=== PATIENT | female | born 1985 | race Caucasian/White ===

== ENCOUNTER → 2016-12-22 | Outpatient (CLI) | payer OTHER ==
[2016-12-22 11:32] LABS: BASO % 0.3 % (0.0-1.0); EOS % 0.6 % (0.0-3.0); LARGE UNSTAINED CELL # 0.1 K/mm3 (0.0-0.4); LARGE UNSTAINED CELL % 2.3 % (0.0-4.0); LYMPH # 1.6 K/mm3 (1.5-4.5); MEAN CORPUSCULAR HEMOGLOBIN 31.5 pg (27.0-33.0); MEAN CORPUSCULAR HGB CONC 34.2 g/dl (32.0-36.5); MEAN CORPUSCULAR VOLUME 92.1 fl (80.0-96.0); MONO # 0.3 K/mm3 (0.0-0.8); MONO % 5.7 % (0.0-5.0); NEUTROPHILS # 2.6 K/mm3 (1.8-7.7); NEUTROPHILS % 56.3 % (36.0-66.0); PLATELET COUNT, AUTOMATED 184 k/mm3 (150-450); RED CELL DISTRIBUTION WIDTH 11.4 % (11.5-14.5); WHITE BLOOD COUNT 4.6 K/mm3 (4.0-10.0)
[2016-12-22 12:00] LABS: ALBUMIN 4.1 GM/DL (3.2-5.2); ALBUMIN/GLOBULIN RATIO 1.21 (1.00-1.93); ALKALINE PHOSPHATASE 46 U/L (45-117); ALT/SGPT 16 U/L (12-78); ANION GAP 9 MEQ/L (8-16); AST/SGOT 10 U/L (15-37); BILIRUBIN,TOTAL 0.6 MG/DL (0.2-1.0); BLOOD UREA NITROGEN 12 MG/DL (7-18); CALCIUM LEVEL 8.6 MG/DL (8.5-10.1); CARBON DIOXIDE LEVEL 26 MEQ/L (21-32); CHLORIDE LEVEL 107 MEQ/L (98-107); FREE T4 1.09 NG/DL (0.76-1.46); GLOMERULAR FILTRATION RATE > 60.0 (>60); GLUCOSE, FASTING 84 MG/DL (70-105); POTASSIUM SERUM 4.8 MEQ/L (3.5-5.1); SODIUM LEVEL 142 MEQ/L (136-145); TOTAL PROTEIN 7.5 GM/DL (6.4-8.2)
== END ==
LOC: M SMT 08:18
PROVIDERS: ATTEND Family Medicine
DX: Z00.00 Encounter for general adult medical examination without abnormal findings (principal)

== ENCOUNTER → 2017-02-02 | Outpatient (REF) | payer OTHER | LOC: M LAB REF 17:02 | PROVIDERS: ATTEND Family Medicine | DX: Z12.4 Encounter for screening for malignant neoplasm of cervix (principal) ==

== ENCOUNTER → 2017-03-22 | Outpatient (CLI) | payer OTHER ==
[2017-03-22 14:07] LABS: AMYLASE 58 U/L (25-115)
== END ==
LOC: M SMT 09:34
PROVIDERS: ATTEND Physician Assistant
DX: K21.9 Gastro-esophageal reflux disease without esophagitis (principal)

== ENCOUNTER 2017-12-14 07:00 | Emergency (ER) | payer OTHER ==
[2017-12-14] MEDS: NS 1,000 ML IV (08:00)
[2017-12-14] MEDS: ONDANSETRON 4MG/2ML VIAL (J2405) IV (08:00)
[2017-12-14 08:20] LABS: BASO % 0.3 % (0.0-1.0); EOS % 0.1 % (0.0-3.0); HEMATOCRIT 37.9 % (36.0-47.0); HEMOGLOBIN 13.5 g/dl (12.0-15.5); IMMATURE GRANULOCYTE % 0.3 % (0-3.0); LYMPH # 1.5 10^3/uL (1.5-4.5); LYMPH % 18.5 % (24.0-44.0); MEAN CORPUSCULAR HEMOGLOBIN 31.5 pg (27.0-33.0); MEAN CORPUSCULAR HGB CONC 35.6 g/dl (32.0-36.5); MEAN CORPUSCULAR VOLUME 88.3 fl (80.0-96.0); MONO # 0.6 10^3/uL (0.0-0.8); MONO % 7.3 % (0.0-5.0); NEUTROPHILS # 5.8 10^3/uL (1.8-7.7); NEUTROPHILS % 73.5 % (36.0-66.0); PLATELET COUNT, AUTOMATED 187 10^3/uL (150-450); RED BLOOD COUNT 4.29 10^6/uL (4.00-5.40); RED CELL DISTRIBUTION WIDTH 11.5 % (11.5-14.5); WHITE BLOOD COUNT 7.9 10^3/uL (4.0-10.0)
[2017-12-14 09:10] LABS: KETONE, URINE AUTO RFX NEGATIVE (NEGATIVE); MUCUS, URINE RFX SMALL (NEGATIVE); NITRITE, URINE AUTO RFX NEGATIVE (NEGATIVE); RBC, URINE AUTO RFX 3 /HPF (0-3); SQUAM EPITHELIAL CELL UR AURFX 2 /HPF (0-6); WBC, URINE AUTO RFX 5 /HPF (0-3)
[2017-12-14 09:11] LABS: LEUKOCYTE ESTERASE UR AUTO RFX 3+ (NEGATIVE)
[2017-12-14 09:15] LABS: ANION GAP 8 MEQ/L (8-16); BLOOD UREA NITROGEN 6 MG/DL (7-18); CALCIUM LEVEL 7.6 MG/DL (8.5-10.1); CARBON DIOXIDE LEVEL 24 MEQ/L (21-32); CHLORIDE LEVEL 108 MEQ/L (98-107); CREATININE FOR GFR 0.48 MG/DL (0.55-1.30); GLOMERULAR FILTRATION RATE > 60.0 (>60); GLUCOSE, FASTING 84 MG/DL (70-100); POTASSIUM SERUM 3.9 MEQ/L (3.5-5.1); SODIUM LEVEL 140 MEQ/L (136-145)
== END 2017-12-14 09:37 | disposition home or self-care (01) ==
LOC: M ED 07:00
DX: O21.0 Mild hyperemesis gravidarum (principal)
CPT/HCPCS: J2405

== ENCOUNTER → 2018-01-12 | Outpatient (CLI) | payer OTHER ==
[2018-01-12 11:41] LABS: BASO % 0.1 % (0.0-1.0); EOS % 0.3 % (0.0-3.0); HEMATOCRIT 37.3 % (36.0-47.0); IMMATURE GRANULOCYTE % 0.3 % (0-3.0); LYMPH # 1.6 10^3/uL (1.5-4.5); LYMPH % 20.9 % (24.0-44.0); MEAN CORPUSCULAR HGB CONC 34.9 g/dl (32.0-36.5); MONO # 0.4 10^3/uL (0.0-0.8); MONO % 4.8 % (0.0-5.0); NEUTROPHILS # 5.5 10^3/uL (1.8-7.7); NEUTROPHILS % 73.6 % (36.0-66.0); PLATELET COUNT, AUTOMATED 172 10^3/uL (150-450); RED BLOOD COUNT 4.19 10^6/uL (4.00-5.40); RED CELL DISTRIBUTION WIDTH 11.4 % (11.5-14.5); WHITE BLOOD COUNT 7.5 10^3/uL (4.0-10.0)
[2018-01-12 13:34] LABS: HBsAg Prenatal NEGATIVE (NEGATIVE); RUBELLA IgG QUALITATIVE >500.0 (IMMUNE)
[2018-01-12 13:34] LABS: HEPATITIS C VIRUS ABY INDEX 0.2 INDEX (<0.8)
[2018-01-12 14:15] LABS: CHLAMYDIA DNA AMPLIFICATION NEGATIVE (NEGATIVE)
[2018-01-15 09:08] LABS: GC DNA AMPLIFICATION NEGATIVE (NEGATIVE)
[2018-01-15 09:10] LABS: HIV 1&2 SCREEN CENTAUR NEGATIVE (NEGATIVE)
== END ==
LOC: M LRY 08:37
DX: Z34.81 Encounter for supervision of other normal pregnancy, first trimester (principal); Z3A.09 9 weeks gestation of pregnancy

== ENCOUNTER → 2018-03-13 | Outpatient (CLI) | payer OTHER | LOC: M RAD 11:50 | DX: Z34.82 Encounter for supervision of other normal pregnancy, second trimester (principal); Z3A.19 19 weeks gestation of pregnancy | CPT/HCPCS: 76811 ==

== ENCOUNTER → 2018-05-03 | Outpatient (CLI) | payer OTHER ==
[~2018-05-03] MED LIST: PROM25TA12 PO; ZOFR4TAB14 PO
[2018-05-03 11:39] LABS: HEMATOCRIT 34.3 % (36.0-47.0); HEMOGLOBIN 11.5 g/dl (12.0-15.5); MEAN CORPUSCULAR HEMOGLOBIN 31.1 pg (27.0-33.0); MEAN CORPUSCULAR HGB CONC 33.5 g/dl (32.0-36.5); MEAN CORPUSCULAR VOLUME 92.7 fl (80.0-96.0); PLATELET COUNT, AUTOMATED 210 10^3/uL (150-450); WHITE BLOOD COUNT 7.5 10^3/uL (4.0-10.0)
== END ==
LOC: M SMT 08:32
PROVIDERS: ATTEND Advanced Practice Midwife
DX: Z36.89 Encounter for other specified antenatal screening (principal)

== ENCOUNTER → 2018-05-10 | Outpatient (CLI) | payer OTHER | LOC: M LAB 07:05 | PROVIDERS: ATTEND Advanced Practice Midwife | DX: R73.02 Impaired glucose tolerance (oral) (principal) ==

== ENCOUNTER 2018-06-08 10:50 | Emergency (ER) | payer OTHER ==
[~2018-06-08] VITALS: Ht 162.6 cm; Wt 62.7 kg
[2018-06-08] MEDS ORDERED: METOCLOPRAMIDE INJ 10MG/2ML VIAL (J2765) IV ONE (11:30)
[2018-06-08] MEDS ORDERED: NS 1,000 ML IV ONE ×2 (11:30→15:15)
[2018-06-08 12:27] LABS: BLOOD UREA NITROGEN 11 MG/DL (7-18); CALCIUM LEVEL 7.7 MG/DL (8.5-10.1); CARBON DIOXIDE LEVEL 19 MEQ/L (21-32); CHLORIDE LEVEL 101 MEQ/L (98-107); CREATININE FOR GFR 0.73 MG/DL (0.55-1.30); GLOMERULAR FILTRATION RATE > 60.0 (>60); GLUCOSE, FASTING 121 MG/DL (70-100); MAGNESIUM LEVEL 1.7 MG/DL (1.8-2.4); POTASSIUM SERUM 3.9 MEQ/L (3.5-5.1); SODIUM LEVEL 136 MEQ/L (136-145)
[2018-06-08] MEDS ORDERED: FAMOTIDINE 20 MG TAB PO ONE (13:30)
[2018-06-08] MEDS ORDERED: PROMETHAZINE 25 MG TAB PO ONE (14:45)
[2018-06-08] MEDS ORDERED: ONDANSETRON 4MG/2ML VIAL (J2405) IV ONE (15:15)
[2018-06-08 16:34] VITALS: BP 130/65
--- NOTE | 2018-06-09 19:22 | ECGEPIP ---
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
== END 2018-06-08 16:37 | disposition home or self-care (01) ==
LOC: M ED 10:50
DX: O21.2 Late vomiting of pregnancy (principal); O99.613 Diseases of the digestive system complicating pregnancy, third trimester; R19.7 Diarrhea, unspecified; R00.0 Tachycardia, unspecified; Z3A.31 31 weeks gestation of pregnancy; Z88.2 Allergy status to sulfonamides
CPT/HCPCS: 80048; 81001; 83735; 87086; 93005; 96361; 96374; 96375; 99284; J2405; J2765

== ENCOUNTER → 2018-07-09 | Outpatient (REF) | payer OTHER | LOC: M LAB REF 16:57 | PROVIDERS: ATTEND Advanced Practice Midwife | DX: Z34.03 Encounter for supervision of normal first pregnancy, third trimester (principal); Z3A.00 Weeks of gestation of pregnancy not specified ==

== ENCOUNTER 2018-08-04 13:27 | Inpatient (IN) | payer OTHER ==
[2018-08-04] VITALS (25 sets, daily range): BP systolic 104–146; BP diastolic 56–96
[~2018-08-04] VITALS: Ht 162.6 cm; Wt 66.5 kg
[2018-08-04] MEDS ORDERED: RANI1SYP PO (13:50)
--- NOTE | 2018-08-04 14:58 | HPE ---
DATE OF ADMISSION: 08/04/2018 HISTORY: 33-year-old 1, para 0 female at 39 and 4/7 weeks gestational age, consistent with 9 week ultrasound, estimated date of confinement (EDC) 08/07/2018, presents with regular contractions every 3 to 4 minutes for the last several hours. Contractions initially started around midnight on the day of admission but were spaced apart. She has a small amount of vaginal bleeding, but she denies loss of fluid. She has good movement. COURSE: The patient initiated care at 9 week gestation on 01/02/2018. Her first trimester blood pressure was 122/78, weight 126 pounds. course was unremarkable. MEDICAL HISTORY: Noncontributory. SURGICAL HISTORY: 1. [place] teeth removal. ALLERGIES: None. SOCIAL HISTORY: The patient lives in [place]. She is . She denies cigarettes, alcohol or drug use. FAMILY HISTORY: Noncontributory. PHYSICAL EXAMINATION: Blood pressure 124/74, pulse 84. SHe appears mildly uncomfortable. HEAD/NECK: Exam normal. LUNGS: Clear. HEART: Regular rate and rhythm. ABDOMEN: Nontender. Gravid. heart tones category 1. Contractions every 2 to 3 minutes. Sterile vaginal examination: 5 cm, 100%, -1, intact, vertex. EXTREMITIES : Nontender. LABORATORIES: Blood type B positive, Rubella immune. RPR nonreactive. Hepatitis B and C negative. HIV negative. Group B streptococcus (GBS) negative on 04/26/2018. ASSESSMENT: 33-year-old 1 at 39 and 4/7 weeks gestation who presented in active labor. PLAN: The patient will be admitted on 08/04/2018.
[2018-08-04 15:13] LABS: HEMATOCRIT 31.4 % (36.0-47.0); HEMOGLOBIN 10.2 g/dl (12.0-15.5); MEAN CORPUSCULAR HGB CONC 32.5 g/dl (32.0-36.5); MEAN CORPUSCULAR VOLUME 86.3 fl (80.0-96.0); PLATELET COUNT, AUTOMATED 184 10^3/uL (150-450); RED BLOOD COUNT 3.64 10^6/uL (4.00-5.40); WHITE BLOOD COUNT 9.4 10^3/uL (4.0-10.0)
[2018-08-04] MEDS: LR 1,000 ML IV SCH ×2 (15:26→16:34)
[2018-08-04] MEDS ORDERED: FENTANYL 2MCG/ML ROPIVACAINE 0.2% IN 0.9% NACL 100ML IVBAG As Ordered ONE (16:06)
[2018-08-04] MEDS ORDERED: FENTANYL/ROPIVACAINE/NACL BAG 100 ML EPIDURAL SCH (17:30)
[2018-08-04] MEDS ORDERED: EPIDURAL/PCA KEYS XX PRN (17:30)
[2018-08-04] MEDS ORDERED: EPIDURAL COMMENT XX SCH (17:30)
[2018-08-04] MEDS ORDERED: ONDANSETRON 4MG/2ML VIAL (J2405) IV PRN (17:30)
[2018-08-04] MEDS ORDERED: ePHEDrine SULFATE 25 MG/5 ML(5MG/ML) SYRINGE IV PRN (17:30)
[2018-08-04] MEDS ORDERED: LACTATED RINGER'S 1000 ML IV PRN (17:30)
[2018-08-04] MEDS ORDERED: NALOXONE INJ 0.4 MG/1 ML VIAL (J2310) IV PRN (17:30)
[2018-08-04] MEDS ORDERED: diphenhydrAMINE INJ 50MG/ML VIAL (J1200) IV PRN (17:30)
[2018-08-04] MEDS ORDERED: REFRIGERATOR IV KEYS XX PRN (17:30)
[2018-08-05] VITALS (9 sets, daily range): BP systolic 113–202; BP diastolic 67–111
[2018-08-05] MEDS: LR 1,000 ML IV SCH ×3 (00:10→19:25)
[2018-08-05] MEDS ORDERED: OXYTOCIN 30 UNITS IN 0.9% NaCl 500ML IV BAG (J2590) As Ordered ONE (00:37)
[2018-08-05] MEDS ORDERED: ONDANSETRON 4MG/2ML VIAL (J2405) IV PRN (02:45)
[2018-08-05] MEDS ORDERED: LIDOCAINE 1% MDV 20ML VIAL INFIL ONE (02:45)
[2018-08-05] MEDS ORDERED: RHOGAM 300 MCG (1500 IU) INJ (J2790) IM SCH (02:45)
[2018-08-05] MEDS ORDERED: DOCUSATE SODIUM 100 MG CAP PO PRN (02:45)
[2018-08-05] MEDS ORDERED: ACETAMINOPHEN 500 MG TAB PO PRN (02:45)
[2018-08-05] MEDS ORDERED: OXYTOCIN DRIP 30 UNITS in APPROPRIATE DILUENT 1 EA IV ONE (02:45)
[2018-08-05] MEDS ORDERED: METHYLERGONOVINE MALEATE 0.2 MG TAB PO PRN (02:45)
[2018-08-05] MEDS ORDERED: MEASLES,MUMPS,RUBELLA VACCINE INJ (MMR-II) (90707) SC SCH (02:45)
[2018-08-05] MEDS: IBUPROFEN 800 MG TAB PO PRN ×2 (03:44→15:58)
[2018-08-05] MEDS: PRENATAL VITAMINS CHEWABLE TABLET PO SCH ×2 (08:45→08:48)
[2018-08-05] MEDS: DIBUCAINE 1% OINTMENT 30GM TOP PRN (09:11)
[2018-08-05] MEDS ORDERED: LR 1,000 ML IV ONE (09:45)
--- NOTE | 2018-08-05 10:10 | DN ---
DATE OF DELIVERY: 08/05/2018 PREDELIVERY DIAGNOSIS: 39 plus weeks, labor. POSTDELIVERY DIAGNOSIS: Delivered. PROCEDURE: Spontaneous vaginal delivery. RN FIRST ASSISTANT: Dr. Barrington Harley ANESTHESIA: Epidural. ESTIMATED BLOOD LOSS: 300 mL. FINDINGS: 7 pound 7 ounce female infant, Apgars 8 and 9. DELIVERY SUMMARY: After a 90 minute second stage, the patient had spontaneous delivery of a 7 pound 7 ounce female infant, Apgars 8 and 9, under epidural anesthesia. There was no nuchal cord. The shoulders delivered with ease. The infant was handed to the mother and cried immediately. The cord was doubly clamped and cut. Placenta delivered spontaneously and appeared to be intact. The patient received IV Pitocin after delivery of the placenta. A second degree perineal laceration was repaired under local anesthesia using #2-0 chromic in the usual fashion. Sponge and needle counts were correct.
[2018-08-05] MEDS: FIORICET TAB PO PRN ×2 (13:03→19:25)
[2018-08-06 05:48] VITALS: BP 102/57
[2018-08-06] MEDS: PRENATAL VITAMINS CHEWABLE TABLET PO SCH (08:05)
[2018-08-06] MEDS: DIBUCAINE 1% OINTMENT 30GM TOP PRN (08:06)
[2018-08-06] MEDS: IBUPROFEN 800 MG TAB PO PRN (08:07)
[2018-08-06] MEDS ORDERED: DOCUSATE SODIUM 100 MG CAP PO ONE (09:30)
[2018-08-06] MEDS ORDERED: ACET-683 PO (09:45)
[2018-08-06] MEDS ORDERED: PREN1CHW6 PO (09:45)
[2018-08-06] MEDS ORDERED: IBUP200C33 PO (09:45)
[2018-08-06] MEDS ORDERED: COLA100C5 PO (09:45)
== END 2018-08-06 11:20 | disposition home or self-care (01) | DRG 807 ==
LOC: M LDO 13:27 → M LDI 14:25 → M OBS 08-05 05:00
PROVIDERS: ADMIT Specialist; ATTEND Specialist
PROC: 0KQM0ZZ Repair Perineum Muscle, Open Approach (ICD-10-PCS; 2018-08-05)
PROC: 10E0XZZ Delivery of Products of Conception, External Approach (ICD-10-PCS; principal; 2018-08-05 23:02)
DX: O70.1 Second degree perineal laceration during delivery (principal); Z37.0 Single live birth; Z3A.39 39 weeks gestation of pregnancy; O89.4 Spinal and epidural anesthesia-induced headache during the puerperium

== ENCOUNTER 2018-08-08 09:48 | Emergency (ER) | payer OTHER ==
[~2018-08-08] VITALS: Ht 162.6 cm; Wt 61.4 kg
[~2018-08-08 09:48] MED LIST changes: +ACET-683 PO; +COLA100C5 PO; +IBUP200C33 PO; +PREN1CHW6 PO; +RANI1SYP PO
[2018-08-08 12:34] VITALS: BP 126/80
== END 2018-08-08 12:49 | disposition home or self-care (01) ==
LOC: M ED 09:48
DX: O74.6 Other complications of spinal and epidural anesthesia during labor and delivery (principal); Z88.2 Allergy status to sulfonamides

== ENCOUNTER 2018-08-08 12:39 | Outpatient (CLI) | payer OTHER ==
[2018-08-08 14:15] VITALS: BP 140/84
== END 2018-08-08 14:37 | disposition home or self-care (01) ==
LOC: M RROUT 12:39 → M OPP 12:39 → M RROUT 14:37
PROVIDERS: ATTEND Anesthesiology
DX: O74.6 Other complications of spinal and epidural anesthesia during labor and delivery (principal)

== ENCOUNTER → 2019-02-05 | Outpatient (CLI) | payer OTHER ==
[2019-02-05 09:31] LABS: BASO % 0.2 % (0.0-1.0); EOS % 0.4 % (0.0-3.0); HEMATOCRIT 38.6 % (36.0-47.0); HEMOGLOBIN 12.6 g/dl (12.0-15.5); LYMPH # 1.7 10^3/uL (1.5-5.0); LYMPH % 36.6 % (24.0-44.0); MEAN CORPUSCULAR HEMOGLOBIN 28.1 pg (27.0-33.0); MEAN CORPUSCULAR HGB CONC 32.6 g/dl (32.0-36.5); MEAN CORPUSCULAR VOLUME 86.2 fl (80.0-96.0); MONO # 0.4 10^3/uL (0.0-0.8); NEUTROPHILS # 2.4 10^3/uL (1.5-8.5); NEUTROPHILS % 53.6 % (36.0-66.0); PLATELET COUNT, AUTOMATED 222 10^3/uL (150-450); RED BLOOD COUNT 4.48 10^6/uL (4.00-5.40); WHITE BLOOD COUNT 4.5 10^3/uL (4.0-10.0)
[2019-02-05 09:48] LABS: BLOOD UREA NITROGEN 15 MG/DL (7-18); CALCIUM LEVEL 8.9 MG/DL (8.5-10.1); CARBON DIOXIDE LEVEL 26 MEQ/L (21-32); CHLORIDE LEVEL 109 MEQ/L (98-107); CREATININE FOR GFR 0.85 MG/DL (0.55-1.30); FREE T4 1.03 NG/DL (0.76-1.46); GLOMERULAR FILTRATION RATE > 60.0 (>60); GLUCOSE, FASTING 83 MG/DL (70-100); POTASSIUM SERUM 3.9 MEQ/L (3.5-5.1); SODIUM LEVEL 142 MEQ/L (136-145)
[2019-02-05 10:54] LABS: TOTAL 25(OH) VITAMIN D 20.3 NG/ML (30.0-100.0)
== END ==
LOC: M LAB 08:32
PROVIDERS: ATTEND Family Medicine
DX: Z13.0 Encounter for screening for diseases of the blood and blood-forming organs and certain disorders involving the immune mechanism (principal); Z13.29 Encounter for screening for other suspected endocrine disorder; E55.9 Vitamin D deficiency, unspecified